=== PATIENT | female | born 1980 | race Caucasian/White ===

== ENCOUNTER → 2021-09-13 14:17 | Outpatient (BNVA) | payer OTHER, SELFPAY | PROVIDERS: PCP Family Medicine; Visit Provider Emergency Medicine | DX: M79.671 Pain in right foot (principal) | CPT/HCPCS: 73630 ==

== ENCOUNTER 2021-09-21 12:25 | Observation (INO) | payer OTHER, SELFPAY ==
[2021-09-21 12:32] VITALS: BP 189/129; PULSE 97; RESP 18; TEMP 37.1; O2SAT 96; BMI 29.9
--- NOTE | 2021-09-21 12:44 | ED.C_ITS ---
HPI - Psych General: Chief Complaint: Psychiatric Symptoms Stated Complaint: Mental Eval Time Seen by Provider: 09/21/21 12:28 [facility] ED PFSH: Medical History (Updated 07/13/21 @ 16:19 by Isabella Christina MD) MDD (major depressive disorder) Psychiatric care Social History Smoking and tobacco status: current every day smoker Second hand smoke exposure: Yes Smoking risk assessment/counseling performed?: Yes Course Vital Signs: Vital signs: Vital Signs Temperature 98.7 F 09/21/21 12:32 Pulse Rate 97 09/21/21 12:32 Respiratory Rate 18 09/21/21 12:32 Blood Pressure 189/129 09/21/21 12:32 Pulse Oximetry 96 09/21/21 12:32 Discharge Plan Discharge Condition: Stable Prescriptions: No Action prednisone 10 mg tablet 30 mg PO DAILY 5 Days Qty: 15 0RF Referrals: Alexandria Guerra DO [Primary Care Provider] - Coding Level of Care Code ED Computer Systems Technician for Hanna Zamarripa
--- NOTE | 2021-09-21 12:48 | W.ED.GENADLT ---
HPI - General Adult General: Chief complaint: Psychiatric Symptoms Stated complaint: Mental Eval Time Seen by Provider: 09/21/21 12:28 History of Present Illness: HPI: [40]yo patient w/ hx of MDD presenting for severe depression. Patient tells me that she does not want to take any of her antidepressant medicine. Patient currently does not have any active plan for killing herself. However, patient says that she can no longer live with her life living like this. Patient was seen earlier today by Dr. Sanders from [facility]. on arrival, the patient is AAOx3 and cooperative with my evaluation. No focal complaints of chest pain, shortness of breath, palpitations, N/V, focal GI/ complaints. Currently denies HI. No complaints of hallucinations. Onset: acute Duration: ongoing Location: home Severity: severe Associated symptoms: Deny chest pain, dyspnea, nausea, rash, palpitations or vomiting Review of Systems Const: Denies: fever(s) or chills Eyes: Denies: change in vision ENMT: Denies: mouth pain Card: Denies: chest pain or palpitations Resp: Denies: dyspnea or non-productive cough GI: Denies: abdominal pain, nausea, vomiting or diarrhea : Denies: dysuria Musc: Denies: extremity pain Skin/Breast: Denies: rash or new lesions Neuro: Denies: weakness in extremities Psych: Reports: depression Jordan/Lymph: Denies: easy bruising PFSH ED PFSH: Medical History MDD (major depressive disorder) Psychiatric care Social History Smoking and tobacco status: current every day smoker Second hand smoke exposure: Yes Smoking risk assessment/counseling performed?: Yes Physical Exam Const: COMMON NORMALS: alert HENMT: COMMON NORMALS: atraumatic HEAD & SCALP: atraumatic MOUTH: moist mucous membranes not abnormal Eye: COMMON NORMALS: EOMs intact bilaterally and conjunctivae normal CONJUNCTIVA: Yes conjunctivae normal Neck/C-Spine: COMMON NORMALS: full ROM and supple Resp: COMMON NORMALS: normal respiratory effort and clear to auscultation bilaterally AUSCULTATION: clear to auscultation bilaterally Cardio: COMMON NORMALS: regular rate RATE: regular rate GI: COMMON NORMALS: Soft to palpation and non-tender PALPATION: Yes Soft to palpation Extremity: COMMON NORMALS: full ROM Neuro: SENSORIUM/ORIENTATION: Yes alert MOTOR EXAM: No Abnormal motor strength present and Other motor observations present (no focal motor deficits) Psych: COMMON NORMALS: speech normal SPEECH: Yes normal speech MOOD & AFFECT: Yes depressed mood Course Vital Signs: Vital signs: Vital Signs Temperature 98.7 F 09/21/21 12:32 Pulse Rate 97 09/21/21 12:32 Respiratory Rate 18 09/21/21 12:32 Blood Pressure 189/129 09/21/21 12:32 Pulse Oximetry 96 09/21/21 12:32 MDM - General Adult Medical Decision Making [40]yo patient w/ hx of MDD presenting for worsening depression. HDS, exam within normal limit Thoughts are linear and organized, and the patient has no AH/VH, or HI. Clinically the patient displays no overt toxidrome; they are well appearing, with low suspicion for toxic ingestion given history and exam. Symptoms unlikely 2/2 anemia, hypothyroidism, infection, or ICH. Workup: CBC, CMP, Lipase, salicylate/tylenol, UDS Lab findings: wnl On reassessment, labs and workup wnl. Patient is hemodynamically stable with no acute medical complaints. Dr. Kemp assessed the patient evaluate patient at 1:30 PM and recommended admission Disposition: admission Lab Data : 09/21/21 13:00 09/21/21 13:00 Laboratory Results WBC 7.0 10^3/uL (4.0-10.0) 09/21/21 13:00 RBC 5.55 10^6/uL (4.1-5.3) H 09/21/21 13:00 Hgb 16.2 g/dL (11.5-15.3) H 09/21/21 13:00 Hct 49.7 % (37.0-47.0) H 09/21/21 13:00 MCV 89.5 fl (81-99) 09/21/21 13:00 MCH 29.2 pg (28.0-34.0) 09/21/21 13:00 MCHC 32.6 g/dL (30.0-36.0) 09/21/21 13:00 RDW 12.7 % (12.1-15.1) 09/21/21 13:00 Plt Count 271 10^3/cmm (130-400) 09/21/21 13:00 MPV 10.0 fL (7.4-10.4) 09/21/21 13:00 Neut % (Auto) 73.3 % 09/21/21 13:00 Lymph % (Auto) 16.5 % 09/21/21 13:00 [place] % (Auto) 9.3 % 09/21/21 13:00 Eos % (Auto) 0.3 % 09/21/21 13:00 Baso % (Auto) 0.3 % 09/21/21 13:00 Neut # (Auto) 5.10 10^3/uL (1.8-7.7) 09/21/21 13:00 Lymph # (Auto) 1.2 10^3/uL (0.8-4.8) 09/21/21 13:00 [place] # (Auto) 0.7 10^3/uL (0.2-0.9) 09/21/21 13:00 Eos # (Auto) 0.0 10^3/uL (0.0-0.8) 09/21/21 13:00 Baso # (Auto) 0.0 10^3/uL (0.0-0.1) 09/21/21 13:00 Nucleated RBC % (auto) 0 % 09/21/21 13:00 Nucleated RBCs # 0.0 /100WBC 09/21/21 13:00 Sodium 136 mmol/L (136-145) 09/21/21 13:00 Potassium 3.8 mmol/L (3.5-5.1) 09/21/21 13:00 Chloride 100 mmol/L (98-107) 09/21/21 13:00 Carbon Dioxide 24 mmol/L (22-29) 09/21/21 13:00 Anion Gap 15.8 (5-19) 09/21/21 13:00 BUN 12 mg/dL (6-20) 09/21/21 13:00 Creatinine 0.8 mg/dL (0.5-0.9) 09/21/21 13:00 GFR Calculation 80.3 mL/min (90-130) L 09/21/21 13:00 Glucose 94 mg/dL (65-115) 09/21/21 13:00 Calculated Osmolality 282 mOsm/kg (285-295) L 09/21/21 13:00 Calcium 9.5 mg/dL (8.5-10.5) 09/21/21 13:00 Total Bilirubin 0.4 mg/dL (0.15-1.2) 09/21/21 13:00 AST 15 U/L (0-32) 09/21/21 13:00 ALT 9 U/L (0-33) 09/21/21 13:00 Alkaline Phosphatase 61 IU/L (35-105) 09/21/21 13:00 Total Protein 8.1 g/dL (6.6-8.7) 09/21/21 13:00 Albumin 4.5 g/dL (3.5-5.2) 09/21/21 13:00 Globulin 3.6 g/dL (1.3-4.6) 09/21/21 13:00 Lipase 25 U/L (13-60) 09/21/21 13:00 HCG, Qual Negative (Negative) 09/21/21 13:00 Salicylates < 0.3 mg/dL (3-10) L 09/21/21 13:00 Acetaminophen < 5.0 ug/mL (10-30) L 09/21/21 13:00 Discharge Plan Discharge Condition: Stable Prescriptions: No Action prednisone 10 mg tablet 30 mg PO DAILY 5 Days Qty: 15 0RF albuterol sulfate 90 mcg/actuation HFA aerosol inhaler 2 puff INHALATION Q6H PRN (Reason: Shortness Of Breath) 0RF Referrals: Alexandria Guerra DO [Primary Care Provider] - Coding Level of Care Code ED Bone Worker for Chg Fwd Exam Comprehensive
--- NOTE | 2021-09-21 13:12 | PC.PHAR ---
pt states she takes care of her own medications-pt states she has the proair inhaler but states she hasnt used it-pt states she has cymbalta 30mg daily filled on 08/15/21 30d/s but states she has never taken
--- NOTE | 2021-09-21 13:30 | PC.NURSE ---
patient refused medication, dr Pavon entered room and advised patient to continue outpt treatment- he stated that he does not do outpatient treatment and the dr left, patient continued to refuse medication-
[2021-09-21 13:40] LABS: Basophils % 0.3 %; Eosinophils % 0.3 %; Hematocrit 49.7 % (37.0-47.0); Hemoglobin 16.2 g/dL (11.5-15.3); Lymphocytes # 1.2 10^3/uL (0.8-4.8); Lymphocytes % 16.5 %; Mean Corpuscular HGB Conc 32.6 g/dL (30.0-36.0); Mean Corpuscular Hemoglobin 29.2 pg (28.0-34.0); Mean Corpuscular Volume 89.5 fl (81-99); Monocytes # 0.7 10^3/uL (0.2-0.9); Monocytes % 9.3 %; Neutrophils % 73.3 %; Nucleated Red Blood Cells % 0 %; Platelet Count 271 10^3/cmm (130-400); Red Blood Count 5.55 10^6/uL (4.1-5.3); Red Cell Distribution Width 12.7 % (12.1-15.1)
[2021-09-21 13:53] LABS: HCG, Serum Qual Negative (Negative)
[2021-09-21 13:57] LABS: Alanine Aminotransferase 9 U/L (0-33); Albumin Level 4.5 g/dL (3.5-5.2); Alkaline Phosphatase 61 IU/L (35-105); Aspartate Amino Transferase 15 U/L (0-32); Blood Urea Nitrogen 12 mg/dL (6-20); Calcium 9.5 mg/dL (8.5-10.5); Carbon Dioxide 24 mmol/L (22-29); Chloride 100 mmol/L (98-107); Globulin 3.6 g/dL (1.3-4.6); Glomerular Filtration Rate 80.3 mL/min (90-130); Glucose 94 mg/dL (65-115); Lipase 25 U/L (13-60); Osmolality Calculated 282 mOsm/kg (285-295); Sodium 136 mmol/L (136-145); Total Bilirubin 0.4 mg/dL (0.15-1.2); Total Protein 8.1 g/dL (6.6-8.7)
[2021-09-21 13:58] LABS: Acetaminophen < 5.0 ug/mL (10-30); Anion Gap 15.8 (5-19); Potassium 3.8 mmol/L (3.5-5.1); Salicylate < 0.3 mg/dL (3-10)
[2021-09-21 15:54] VITALS: BP 168/108; PULSE 64; RESP 18; O2SAT 97
--- NOTE | 2021-09-21 15:59 | PC.NURSE ---
report to URIEL Reyes on NPU- patient transported via wheelchair. spouse updated.
[2021-09-21 16:29] VITALS: BP 146/96; PULSE 66; RESP 16; TEMP 37.1; O2SAT 92
[2021-09-21 17:10] LABS: Amphetamines Screen Urine Negative (Negative); Barbiturates Screen Urine Negative (Negative); Benzodiazepines Screen Urine Negative (Negative); Cocaine Screen Urine Negative (Negative); Opiate Screen Urine Negative (Negative); PCP Screen Urine Negative (Negative); THC Screen Urine Positive (Negative)
--- NOTE | 2021-09-21 18:29 | PC.NURSE ---
Prn note patient noted to be very anxious, tearful stating she did not want to be here and did not find this place helpful. Staff offered meds to help ease anxiety. Patient refused. Staff accompanied patient to court room to help alleviate patient's anxiety. Physician notified, patient more calm after going outside. Patient is agreeable to stay the night at this time. Physician did state patient may leave if she becomes upset again but it would be against medical advice. Patient educated thoroughly and verbalized understanding.
--- NOTE | 2021-09-21 18:52 | PC.NURSE ---
Prn note Aide spoke with spouse who was upset and wanted patient to discharge. Aide explained that patient was resting and had eaten something. She was calm at the time. Spouse verbalized understanding and stated he would let patient rest.
[2021-09-21] MEDS: acetaminophen 325 mg Tablet 650 MG PO (19:32)
[2021-09-21] MEDS: OLANZapine 5 mg ODT PO (19:33)
[2021-09-21 20:44] VITALS: BP 149/110; PULSE 68; RESP 18; TEMP 36.9; O2SAT 97
[2021-09-21] MEDS: hyDROXYzine 25 mg Capsule 50 MG PO ×2 (21:00→21:01)
--- NOTE | 2021-09-21 22:40 | PC.NURSE ---
193 On assessment the patient reports she is not okay Her symptoms are generalized pain everywhere rating it at a high number and a very undesirable feeling. She also is feeling very anxious and irritable. She states she feels like sleeping but she can't with these feelings. She was against taking any medication while here but has resolved that she can not stay like this tonight. Patient agreed to take something for pain and agitation. Tylenol 650mg po and Zyprexa 5 mg po were given. Patient took the medications voluntarily with education given upon dispensing. She verbalized understanding. She is now resting comfortably. Meds effective.
[2021-09-22] MEDS: hyDROXYzine 25 mg Capsule 50 MG PO (03:51)
[2021-09-22 06:00] VITALS: BP 129/85; PULSE 68; RESP 20; TEMP 37.7; O2SAT 97
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
[2021-09-22 09:58] VITALS: BP 129/85; PULSE 68; RESP 20; TEMP 37.7; O2SAT 97
--- NOTE | 2021-09-23 11:48 | PC.NURSE ---
Patient called with concerns of side effects from medications that she took while in the hospital. Reviewed meds. Received hydroxyzine on 09/22 for anxiety. Patient states that the left half of brain is buzzing and tingly and feeling. She stated felt like I was in a brain fog. Patient was very tearful and anxious and did not want to return to ER for follow up. Patient encouraged to return to primary physician or urgent care with continued symptoms.
== END 2021-09-22 13:15 | disposition home or self-care (01) ==
LOC: ER 14:24 → NP 09-22 07:18
PROVIDERS: Admitting Provider Psychiatry & Neurology Psychiatry; Emergency Provider Emergency Medicine; PCP Family Medicine; Visit Provider Psychiatry & Neurology Psychiatry
DX: F60.3 Borderline personality disorder (principal); F32.9 Major depressive disorder, single episode, unspecified; F17.210 Nicotine dependence, cigarettes, uncomplicated
CPT/HCPCS: 80053; 80306; 80307; 83690; 84703; 85025; 97150; 97165; 99285; G0378

== ENCOUNTER → 2021-11-08 11:39 | Outpatient (BNVA) | payer OTHER, SELFPAY | PROVIDERS: PCP Family Medicine; Referring Provider Nurse Practitioner Family; Visit Provider Podiatrist Foot & Ankle Surgery | DX: M79.672 Pain in left foot (principal) | CPT/HCPCS: 73630 ==

== ENCOUNTER 2021-11-14 15:09 | Outpatient (RCR) | payer OTHER, SELFPAY | END 2021-12-06 23:59 | disposition home or self-care (01) | LOC: SPT 15:09 | PROVIDERS: PCP Family Medicine; Visit Provider Podiatrist Foot & Ankle Surgery | DX: M20.20 Hallux rigidus, unspecified foot (principal); M25.871 Other specified joint disorders, right ankle and foot | CPT/HCPCS: 97161 ==

== ENCOUNTER 2022-02-06 06:00 | Outpatient (RCR) | payer OTHER, SELFPAY | END 2022-03-08 23:59 | disposition home or self-care (01) | LOC: SPT 06:00 | PROVIDERS: PCP Family Medicine; Visit Provider Podiatrist Foot & Ankle Surgery | DX: M79.673 Pain in unspecified foot (principal) | CPT/HCPCS: 97760; L3030 ==